=== PATIENT | female | born 1950 | race Caucasian/White ===

== ENCOUNTER 2020-09-24 08:29 | Emergency (ER) | payer MEDICARE, OTHER ==
--- NOTE | 2020-09-24 10:57 | EDM.PDOC ---
ED HPI GENERAL MEDICAL PROBLEM - General Stated Complaint: ER COVID TEST Time Seen by Provider: 09/24/20 09:30 Source of Information: Reports: Patient, Family, RN, RN Notes Reviewed - History of Present Illness INITIAL COMMENTS - FREE TEXT/NARRATIVE: Patient presents to ER with complaint of headache beginning yesterday morning, cough, body aches, fever, chills, shortness of breath at times, dizziness, nausea intermittently. Patient states the symptoms began yesterday morning and progressively got worse. Patient states they were exposed to Covid a week ago this past Wednesday, 8 days ago. Patient states she is unable to take ibuprofen, but has been taking Tylenol for pain. Onset: Gradual - Related Data Allergies Allergy/AdvReac Type Severity Reaction Status Date / Time No Known Allergies Allergy Verified 09/24/20 10:53 Home Meds: Home Meds Aspirin 81 mg PO DAILY 09/24/20 [History] Calcium Carbonate [Calcium] 600 mg PO DAILY 09/24/20 [History] Cholecalciferol (Vitamin D3) [Vitamin D3] 400 unit PO DAILY 09/24/20 [History] Levothyroxine 125 mcg PO ACBREAKFAST 09/24/20 [History] Milnacipran HCl [Savella] 50 mg PO BID 09/24/20 [History] Omega3/Dha/Epa/Fish Oil/Vit D3 [Fish Oil-Vit D3 Softgel] 1 each PO DAILY 09/24/20 [History] Omeprazole 40 mg PO DAILY 09/24/20 [History] Travoprost [Travatan Z] 1 drop EYEBOTH BEDTIME 09/24/20 [History] Triamterene/Hydrochlorothiazid [Triamterene-HCTZ 37.5-25 MG] 1 cap PO DAILY 09/24/20 [History] Zolpidem [Ambien] 10 mg PO BEDTIME PRN 09/24/20 [History] atorvaSTATin [Lipitor] 10 mg PO BEDTIME 09/24/20 [History] lisinopriL [Lisinopril] 5 mg PO DAILY 09/24/20 [History] ED ROS GENERAL - Review of Systems Review Of Systems: Comprehensive ROS is negative, except as noted in HPI. ED EXAM, GENERAL - Physical Exam Exam: See Below Exam Limited By: No Limitations General Appearance: Alert, WD/WN, Mild Distress Eye Exam: Bilateral Eye: EOMI, Normal Inspection Ears: Normal External Exam, Hearing Grossly Normal Nose: Normal Inspection Throat/Mouth: Normal Inspection, No Airway Compromise, Other (Hoarse voice) Head: Atraumatic, Normocephalic Neck: Normal Inspection, Supple, Non-Tender, Full Range of Motion Respiratory/Chest: No Respiratory Distress, No Accessory Muscle Use, Chest Non- Tender, Decreased Breath Sounds Cardiovascular: Normal Peripheral Pulses, Regular Rate, Rhythm, No Edema, No Gallop, No JVD, No Murmur, No Rub Peripheral Pulses: 2+: Radial (L), Radial (R) GI/Abdominal: Normal Bowel Sounds, Soft, Non-Tender (Female) Exam: Deferred Rectal (Female) Exam: Deferred Back Exam: Normal Inspection, Full Range of Motion, NT Extremities: Normal Inspection, Normal Range of Motion, Non-Tender, Normal Capillary Refill, No Pedal Edema Neurological: Alert, Oriented, CN II-XII Intact, Normal Cognition, Normal Gait, Normal Reflexes, No Motor/Sensory Deficits Psychiatric: Normal Affect, Normal Mood Skin Exam: Warm, Dry, Intact, Normal Color, No Rash Lymphatic: No Adenopathy Course - Orders/Labs/Meds Labs: Laboratory Tests 09/24/20 Range/Units 09:00 SARS CoV-2 RNA Rapid MARGARITO Positive H (NEGATIVE) Departure - Departure Time of Disposition: 10:56 Disposition: Home, Self-Care 01 Condition: Fair Clinical Impression: COVID-19 - Discharge Information *PRESCRIPTION DRUG MONITORING PROGRAM REVIEWED*: No *COPY OF PRESCRIPTION DRUG MONITORING REPORT IN PATIENT ONEL: No Instructions: COVID-19 Frequently Asked Questions, COVID-19, Upper Respiratory Infection, Adult, Tynp-gc-Larp, COVID-19: How to Protect Yourself and Others - CDC, Prevent the Spread of COVID-19 if You Are Sick - [facility] Additional Instructions: Rx: Prednisone, azithromycin, these medications have been called into your pharmacy Drink plenty of water May use Tylenol as directed for pain/fever Return to the ER with any worsening of symptoms Rest Quarantine for 14 days, the [facility] will be contacting you for further guidance
== END 2020-09-24 11:05 | disposition home or self-care (01) ==
LOC: VM.ED 08:29
DX: U07.1 COVID-19 (principal)
CPT/HCPCS: 87804; 87804-59; 99283; 99284; U0002

== ENCOUNTER 2020-12-26 20:44 | Emergency (ER) | payer MEDICARE, OTHER ==
[2020-12-26] MEDS ORDERED: Albuterol/Ipratropium 3.0-0.5 MG/3 ML Neb Soln NEB ONE (20:57)
[2020-12-26] MEDS ORDERED: hydrOXYzine HCl 25 MG Tab PO ONE (20:57)
--- NOTE | 2020-12-26 21:04 | EDM.PDOC ---
ED HPI GENERAL MEDICAL PROBLEM - General Stated Complaint: SOB Time Seen by Provider: 12/26/20 20:53 Source of Information: Reports: Patient - History of Present Illness INITIAL COMMENTS - FREE TEXT/NARRATIVE: Misti is a 70 y/o female who comes to the ER with SOB. She reports that she became SOB about 6 pm tonight. She did receive her second COVID vaccine yesterday and reports that she has felt rotten all day. She did take a cetaminophen for aches. Denies fever. She did not have this reaction with the first vaccine. She has not been ill. She does deny having any symptoms like this in the past. She had COVID in the early September and then reports developing pneumonia. Reports she had a fever of 102 at home prior to taking the Tylenol. - Related Data Allergies Allergy/AdvReac Type Severity Reaction Status Date / Time No Known Allergies Allergy Verified 09/24/20 10:53 Home Meds: Home Meds Aspirin 81 mg PO DAILY 09/24/20 [History] Calcium Carbonate [Calcium] 600 mg PO DAILY 09/24/20 [History] Cholecalciferol (Vitamin D3) [Vitamin D3] 400 unit PO DAILY 09/24/20 [History] Levothyroxine 125 mcg PO ACBREAKFAST 09/24/20 [History] Milnacipran HCl [Savella] 50 mg PO BID 09/24/20 [History] Omega3/Dha/Epa/Fish Oil/Vit D3 [Fish Oil-Vit D3 Softgel] 1 each PO DAILY 09/24/20 [History] Omeprazole 40 mg PO DAILY 09/24/20 [History] Travoprost [Travatan Z] 1 drop EYEBOTH BEDTIME 09/24/20 [History] Triamterene/Hydrochlorothiazid [Triamterene-HCTZ 37.5-25 MG] 1 cap PO DAILY 09/24/20 [History] Zolpidem [Ambien] 10 mg PO BEDTIME PRN 09/24/20 [History] atorvaSTATin [Lipitor] 10 mg PO BEDTIME 09/24/20 [History] lisinopriL [Lisinopril] 5 mg PO DAILY 09/24/20 [History] Past Medical History Cardiovascular History: Reports: High Cholesterol, Hypertension Gastrointestinal History: Reports: Hiatal Hernia, Other (See Below) Other Gastrointestinal History: Schatzki's ring,. 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 Genitourinary History: Reports: Chronic Renal Insuffiency Musculoskeletal History: Reports: Fibromyalgia, Osteoarthritis, Other (See Below) Other Musculoskeletal History: disorder of bone, myofascial pain syndrome, De Quervain's tenosynovitis Neurological History: Reports: Migraines Psychiatric History: Reports: Depression Endocrine/Metabolic History: Reports: Hypothyroidism, Obesity/BMI 30+ - Infectious Disease History Infectious Disease History: Reports: Novel Coronavirus Review of Systems - Review of Systems Review Of Systems: See Below Constitutional: Reports: Fever Eyes: Reports: No Symptoms Ears: Reports: No Symptoms Nose: Reports: No Symptoms Mouth/Throat: Reports: No Symptoms Respiratory: Reports: Shortness of Breath Cardiovascular: Reports: No Symptoms GI/Abdominal: Reports: No Symptoms Genitourinary: Reports: No Symptoms Musculoskeletal: Reports: Other (Myalgias) Skin: Reports: No Symptoms Neurological: Reports: No Symptoms Psychiatric: Reports: Anxiety ED EXAM, GENERAL - Physical Exam Exam: See Below General Appearance: Alert, WD/WN, Anxious (Adult female, needing encouragement to slow her breathing down.) Eye Exam: Bilateral Eye: PERRL Ears: Normal External Exam, Normal Canal, Hearing Grossly Normal, Normal TMs Nose: Normal Inspection, Normal Mucosa Throat/Mouth: Normal Inspection, Normal Lips, Normal Voice Head: Atraumatic, Normocephalic Neck: Normal Inspection, Supple Respiratory/Chest: No Respiratory Distress, Lungs Clear, Normal Breath Sounds, Other (Hyperventilating and slows breathing with much encouragement) Cardiovascular: Normal Peripheral Pulses, Regular Rate, Rhythm GI/Abdominal: Normal Bowel Sounds, Soft, Non-Tender (Female) Exam: Deferred Rectal (Female) Exam: Deferred Back Exam: Normal Inspection Extremities: Normal Inspection, Normal Range of Motion, Normal Capillary Refill Neurological: Alert, Oriented, CN II-XII Intact Psychiatric: Anxious Skin Exam: Warm, Dry, Intact, Normal Color Lymphatic: No Adenopathy Course - Vital Signs Text/Narrative:: 2053 The patient was seen by the FOOD CONSULTANT. Patient was given a Duoneb and Hydroxyzin 100mg po. She was breathing very fast and quite anxious. Her O2 sats were 95- 100% on RA with much encouragement to slow her breathing down. 2144 Patient resting and breathing easier. Noted erythema and swelling around injection site on left uppr arm. After noting this where BP cuff was, patient became more anxious and reported that she had trouble feeling her throat swelling. Epinephrine 1:1000 0.5ml given SQ. 2205 Patient resting and feeling much better. Will send home with Benadryl q6 hours for next 48 hours. Patient was given discharge instructions and left the ER in stable condition. - Orders/Labs/Meds Orders: Active Orders 24 hr Category Date Time Status RT Aerosol Therapy [RC] ASDIRECTED Care 12/26/20 20:57 Ordered Albuterol/Ipratropium [DuoNeb 3.0-0.5 MG/3 ML] Med 12/26/20 20:57 Once 3 ml NEB ONETIME ONE hydrOXYzine HCL [Atarax] Med 12/26/20 20:57 Once 100 mg PO ONETIME ONE Departure - Departure Time of Disposition: 22:08 Disposition: Home, Self-Care 01 Clinical Impression: Acute anxiety, COVID-19, Adverse effect of COVID-19 vaccine - Discharge Information Instructions: EUA of the Moderna COVID-19 Vaccine for Recipients and Caregivers, Anaphylactic Reaction, Adult - My Orders Last 24 Hours: My Active Orders 12/26/20 20:57 RT Aerosol Therapy [RC] ASDIRECTED Albuterol/Ipratropium [DuoNeb 3.0-0.5 MG/3 ML] 3 ml NEB ONETIME ONE hydrOXYzine HCL [Atarax] 100 mg PO ONETIME ONE - Assessment/Plan Last 24 Hours: My Active Orders 12/26/20 20:57 RT Aerosol Therapy [RC] ASDIRECTED Albuterol/Ipratropium [DuoNeb 3.0-0.5 MG/3 ML] 3 ml NEB ONETIME ONE hydrOXYzine HCL [Atarax] 100 mg PO ONETIME ONE Assessment:: 1)Adverse Reaction from COVID 19 Vaccine 2)Anxiety Plan: -Benadryl 50mg oral very 6 hours for the next 48 hours -Continue using acetaminophen as needed -Stay well hydrated -Rest as needed -Follow up with Dr Mcclendon tomorrow for recheck or return to the ER if your symptoms are worse
[2020-12-26] MEDS ORDERED: EPINEPHrine 1 MG/ML SDV SUBCUT ONE ×2 (21:51→22:00)
[2020-12-26] MEDS ORDERED: EPINEPHrine 1 MG/ML SDV SUBCUT STA (21:59)
[2020-12-26] MEDS ORDERED: EPINEPHrine 1 MG/1 ML Amp SUBCUT STA (22:01)
[2020-12-26] MEDS ORDERED: Acetaminophen 500 MG Tab PO ONE (22:16)
[2020-12-26] MEDS ORDERED: Dexamethasone 4 MG/ML SDV PO ONE (22:29)
[2020-12-26 23:12] LABS: BUPRENORPHINE,URINE NEGATIVE (NEGATIVE); MARIJUANA,URINE NEGATIVE (NEGATIVE); METHYLENEDIOXYMETHAMP,UR NEGATIVE (NEGATIVE); PHENCYCLIDINE,URINE NEGATIVE (NEGATIVE)
[2020-12-26 23:28] LABS: PTT,PARTIAL THROMBOPLSTIN TIME 20.5 SEC (25.6-32.8)
[2020-12-26 23:37] LABS: CHLORIDE,CL 102 mmol/L (98-107); SODIUM,NA 140 mmol/L (136-145)
[2020-12-26] MEDS ORDERED: Potassium Chloride 20 MEQ Tab.ER PO ONE (23:46)
[2020-12-27] MEDS ORDERED: Iopamidol 612 MG/ML 100 ML Bottle IVPUSH ONE (01:15)
--- NOTE | 2020-12-27 08:04 | CT ---
[id number] CT/CTA Chest EXAM: CT ANGIOGRAM CHEST INDICATION: BACK PAIN, +DDIMER, CHEST PAIN, SOB COMPARISON: 11/01/2020. DISCUSSION: No large central, lobar or segmental pulmonary arterial filling defect to suggest acute pulmonary embolism. Evaluation of the subsegmental pulmonary arteries is limited secondary to suboptimal bolus. Linear atelectasis and/or scarring at the lung bases bilaterally. No confluent airspace consolidation. 6 mm noncalcified subpleural nodule within the right upper lobe (series 4 image 104). No pleural or pericardial effusion. Normal heart size. No mediastinal, hilar or axillary lymphadenopathy. The gallbladder is surgically absent. No acute fracture or dislocation. Small hiatal hernia. IMPRESSION: 1. No evidence of acute pulmonary embolism. 2. 6 mm noncalcified subpleural pulmonary nodule within the right upper lobe. Repeat chest CT in 6 months is recommended. Tony Murdock DO 12/27/20 0803 Thank you for allowing us to participate in the care of your patient.
--- NOTE | 2020-12-27 08:05 | CR ---
[id number] RAD/RAD Chest Portable EXAM: PORTABLE CHEST INDICATION: SOB COMPARISON: November 01, 2020 CT DISCUSSION: The lungs are hypoinflated with mild central vascular crowding and basilar atelectasis. No acute infiltrates are identified. Normal heart size. No effusions. IMPRESSION: 1. Low lung volumes. Otherwise negative exam. Isiah Mcdaniels MD 12/27/20 0804 Thank you for allowing us to participate in the care of your patient.
== END 2020-12-27 01:37 | disposition home or self-care (01) ==
LOC: VM.ED 20:44
DX: U07.1 COVID-19 (principal); F41.9 Anxiety disorder, unspecified; T50.B95A Adverse effect of other viral vaccines, initial encounter; E78.00 Pure hypercholesterolemia, unspecified; I12.9 Hypertensive chronic kidney disease with stage 1 through stage 4 chronic kidney disease, or unspecified chronic kidney disease; N18.9 Chronic kidney disease, unspecified; E03.9 Hypothyroidism, unspecified; M19.90 Unspecified osteoarthritis, unspecified site; E66.9 Obesity, unspecified; Z68.32 Body mass index [BMI] 32.0-32.9, adult; Z79.82 Long term (current) use of aspirin
CPT/HCPCS: 36415; 71045; 71275; 80053; 80305-QW; 82728; 83735; 83880; 84484; 85025; 85379; 85610; 85730; 86140; 93005; 96372; 99284; 99285-25; A9270-GY; J0171; J1100; J7620-GY; Q9967